=== PATIENT | female | born 1955 | race Caucasian/White ===

== ENCOUNTER → 2016-06-27 | Outpatient (REF) ==
[~2016-06-27] MED LIST: AMITRIPTYLINE H25 M1 PO; BYETTA 5MC300 MCG/SY SC; CYMBALTA 20MG20 MG PO; GLUMETZA500 MG PO; GRALISE600 MG PO; IBU600 MG PO; LASIX 40MG TABL40 MG PO; LEVOXYL0.088 MG PO; MELATONIN5 MG PO; PRINIVIL20 MG PO; PROTONIX 40MG T40 MG PO; VICOPROFEN 7.51 TAB PO; VITAMIN D8000 IU/ML PO
== END ==
LOC: ZLAB.WCH 15:13
DX: Z01.89 Encounter for other specified special examinations (principal)

== ENCOUNTER → 2016-09-29 | Outpatient (REF) | LOC: ZLAB.WCH 19:11 | DX: Z01.89 Encounter for other specified special examinations (principal) ==

== ENCOUNTER → 2017-06-29 | Outpatient (REF) | LOC: ZLAB.WCH 17:50 | DX: Z01.89 Encounter for other specified special examinations (principal) ==

== ENCOUNTER → 2017-09-13 | Outpatient (CLI) | payer MEDICARE, BC | LOC: COL.RAD 07:49 | DX: K31.89 Other diseases of stomach and duodenum (principal); R14.3 Flatulence; K57.92 Diverticulitis of intestine, part unspecified, without perforation or abscess without bleeding; R14.0 Abdominal distension (gaseous); R11.0 Nausea; R10.9 Unspecified abdominal pain; K58.9 Irritable bowel syndrome, unspecified; K21.9 Gastro-esophageal reflux disease without esophagitis | CPT/HCPCS: A9541 ==

== ENCOUNTER → 2017-09-19 | Outpatient (REF) ==
[2017-09-19 18:25] LABS: IRON,SERUM 28 ug/dL (35-150)
[2017-09-19 18:34] LABS: TOTAL IRON BINDING CAPACITY 388 ug/dL (265-497)
[2017-09-19 18:58] LABS: FERRITIN 122 ng/mL (11-264)
== END ==
LOC: ZLAB.WCH 18:04
PROVIDERS: Nurse Practitioner Family
DX: Z01.89 Encounter for other specified special examinations (principal)

== ENCOUNTER → 2017-12-26 | Outpatient (REF) | LOC: ZLAB.WCH 08:33 | DX: Z01.89 Encounter for other specified special examinations (principal) ==

== ENCOUNTER → 2018-04-08 | Outpatient (CLI) | payer MEDICARE, BC ==
[~2018-04-08] VITALS: Ht 165.1 cm; Wt 99.0 kg
[2018-04-08] VITALS (12 sets, daily range): BP systolic 122–152; BP diastolic 75–93; PULSE 76–93
[~2018-04-08] MED LIST changes: +ASMANEX TW0.22 MG/A1 IH; +SYNTHROID0.088 MG/T PO; +VICTOZA6 MG/ML SQ
[2018-04-08 09:15] LABS: PROTHROMBIN TIME 11.2 SECONDS (9.7-12.8)
--- NOTE | 2018-04-08 09:25 | NUR ---
PT TAKEN TO US ROOM. PLACED ON THE TABLE AND MONITORING EQUIPMENT PLACED. VSS.
--- NOTE | 2018-04-08 09:30 | NUR ---
PT DOING WELL. TIME OUT DONE. DR ORTIZ IN ROOM.
--- NOTE | 2018-04-08 09:35 | NUR ---
PROCEDURE COMPLETED. PT CLEANED AND BANDAIDE PLACED. VOICES SOME PAIN IN THE LEFT SHOULDER. DR ORTIZ REASSURED PT.
== END ==
LOC: COL.RAD 08:29
PROVIDERS: Radiology Diagnostic Radiology
DX: K76.0 Fatty (change of) liver, not elsewhere classified (principal); Z72.89 Other problems related to lifestyle

== ENCOUNTER → 2018-05-15 | Outpatient (CLI) | payer MEDICARE, BC | LOC: COL.RAD 09:36 | DX: K44.9 Diaphragmatic hernia without obstruction or gangrene (principal); K21.9 Gastro-esophageal reflux disease without esophagitis; K22.8 Other specified diseases of esophagus ==

== ENCOUNTER → 2018-06-27 | Outpatient (REF) | LOC: ZLAB.WCH 17:15 | DX: Z01.89 Encounter for other specified special examinations (principal) ==

== ENCOUNTER 2018-07-13 23:09 | Emergency (ER) | payer MEDICARE, BC ==
[~2018-07-13] VITALS: Ht 165.1 cm; Wt 99.5 kg
[2018-07-13 23:20] VITALS: TEMP 97.4
[2018-07-14] MEDS ORDERED: PREDNISONE10 MG PO (00:28)
[2018-07-14 01:11] VITALS: BP 144/81; PULSE 82
== END 2018-07-14 01:11 | disposition home or self-care (01) ==
LOC: COL.ER 23:09
DX: L50.9 Urticaria, unspecified (principal); E11.9 Type 2 diabetes mellitus without complications; I10 Essential (primary) hypertension; Z79.84 Long term (current) use of oral hypoglycemic drugs
CPT/HCPCS: J1200; J7512

== ENCOUNTER 2019-02-01 13:32 | Emergency (ER) | payer MEDICARE, BC ==
[~2019-02-01] VITALS: Ht 165.1 cm; Wt 98.6 kg
[~2019-02-01 13:32] MED LIST changes: +PREDNISONE10 MG PO
[2019-02-01 13:34] VITALS: TEMP 97.6
[2019-02-01] MEDS ORDERED: MOBIC 7.5MG7.5 MG PO (14:03)
[2019-02-01 14:11] LABS: BASO % 0.6 % (0.0-2.0); EOS # 0.1 (0.0-0.7); GRAN # 4.3 (1.4-6.5); GRAN % 65.7 % (42.2-75.2); HEMATOCRIT 39.4 % (37.0-47.0); HEMOGLOBIN 13.2 g/dl (12.5-16.0); LYMPH # 1.6 (1.2-3.4); LYMPH % 24.4 % (20.0-51.0); MEAN CELL VOLUME 104 fl (80.0-100.0); MEAN CORPUSCULAR HEMOGLOBIN 35 pg (27.0-31.0); MEAN CORPUSCULAR HGB CONC 34 g/dl (33.0-37.0); MEAN PLATELET VOLUME 10.8 fl (7.4-10.4); MONO # 0.5 (0.1-0.6); PLATELET COUNT 272 K/mm3 (130-400); RED BLOOD COUNT 3.78 M/mm3 (4.10-5.30); REDCELL DISTRIBUTION WIDTH-CV 12.1 % (11.5-14.5)
[2019-02-01 14:25] LABS: ALANINE AMINOTRANSFERASE 49 U/L (9-52); ALBUMIN 4.4 gm/dL (3.5-5.0); ALKALINE PHOSPHATASE 100 U/L (50-136); ANION GAP 11 mmol/L (7-16); AST,SGOT 51 U/L (15-37); BILIRUBIN,TOTAL 0.3 mg/dL (0.0-1.0); BLOOD UREA NITROGEN 19 mg/dL (7-17); CALCIUM 9.6 mg/dL (8.4-10.2); CARBON DIOXIDE 26 mmol/L (22-30); CHLORIDE 101 mmol/L (98-107); CREATININE, serum 0.84 (0.52-1.25); GLUCOSE 159 mg/dL (74-106); POTASSIUM 4.4 mmol/L (3.4-5.0); SODIUM 138 mmol/L (137-145); TOTAL PROTEIN 7.2 gm/dL (6.4-8.2)
[2019-02-01 14:36] LABS: TROPONIN-I < 0.012 ng/mL (0.000-0.035)
[2019-02-01 17:27] VITALS: BP 162/64; PULSE 70
== END 2019-02-01 17:27 | disposition home or self-care (01) ==
LOC: COL.ER 13:32
PROVIDERS: Emergency Medicine
DX: R07.89 Other chest pain (principal); E11.9 Type 2 diabetes mellitus without complications; Z79.84 Long term (current) use of oral hypoglycemic drugs
CPT/HCPCS: J1885; J7030

== ENCOUNTER → 2020-02-27 | Outpatient (REF) ==
[~2020-02-27] MED LIST changes: +MOBIC 7.5MG7.5 MG PO
== END ==
LOC: ZLAB.WCH 18:26
DX: Z01.89 Encounter for other specified special examinations (principal)

== ENCOUNTER → 2020-03-17 | Outpatient (REF) | LOC: ZLAB.WCH 19:13 | DX: Z01.89 Encounter for other specified special examinations (principal) ==

== ENCOUNTER 2020-05-09 11:34 | Emergency (ER) | payer MEDICARE, OTHER ==
[~2020-05-09] VITALS: Ht 165.1 cm; Wt 98.2 kg
[2020-05-09 11:58] VITALS: TEMP 98.8
[2020-05-09 15:02] VITALS: BP 130/82; PULSE 63
== END 2020-05-09 14:52 | disposition home or self-care (01) ==
LOC: COL.ER 11:34
DX: S82.65XA Nondisplaced fracture of lateral malleolus of left fibula, initial encounter for closed fracture (principal); E11.9 Type 2 diabetes mellitus without complications; E03.9 Hypothyroidism, unspecified; I10 Essential (primary) hypertension; K21.9 Gastro-esophageal reflux disease without esophagitis; Z88.6 Allergy status to analgesic agent; Z88.0 Allergy status to penicillin; Z87.891 Personal history of nicotine dependence; Z79.890 Hormone replacement therapy; Z79.84 Long term (current) use of oral hypoglycemic drugs; W17.89XA Other fall from one level to another, initial encounter; Y92.094 Garage of other non-institutional residence as the place of occurrence of the external cause

== ENCOUNTER 2020-10-12 15:47 | Emergency (ER) | payer MEDICARE, OTHER ==
[~2020-10-12] VITALS: Ht 165.1 cm; Wt 98.2 kg
[2020-10-12 16:02] VITALS: TEMP 98.2
[2020-10-12 17:45] VITALS: BP 148/90; PULSE 82
== END 2020-10-12 17:48 | disposition home or self-care (01) ==
LOC: COL.ER 15:47
DX: S79.912A Unspecified injury of left hip, initial encounter (principal); S49.92XA Unspecified injury of left shoulder and upper arm, initial encounter; R60.0 Localized edema; E11.43 Type 2 diabetes mellitus with diabetic autonomic (poly)neuropathy; E11.40 Type 2 diabetes mellitus with diabetic neuropathy, unspecified; K31.84 Gastroparesis; E03.9 Hypothyroidism, unspecified; I10 Essential (primary) hypertension; K21.9 Gastro-esophageal reflux disease without esophagitis; Z79.84 Long term (current) use of oral hypoglycemic drugs; Z79.890 Hormone replacement therapy; W01.0XXA Fall on same level from slipping, tripping and stumbling without subsequent striking against object, initial encounter; Y92.009 Unspecified place in unspecified non-institutional (private) residence as the place of occurrence of the external cause
CPT/HCPCS: J1650

== ENCOUNTER → 2020-10-14 | Outpatient (CLI) | payer MEDICARE, OTHER ==
[~2020-10-14] MED LIST changes: +CYMBALTA 60MG60 MG PO; +LOVENOX 4040 MG/0.4 SQ; +TYLENOL 500MG500 MG PO; +ULTRAM 50MG TAB50 MG PO; +ZANAFLEX CAPSULE6 MG PO; +ZYRTEC 10MG10 MG PO
== END ==
LOC: COL.VAS 08:10
DX: M79.89 Other specified soft tissue disorders (principal); M79.662 Pain in left lower leg

== ENCOUNTER 2020-11-01 19:30 | Inpatient (IN) | payer MEDICARE, OTHER ==
[~2020-11-01] VITALS: Ht 165.1 cm; Wt 100.5 kg
[~2020-11-01 19:30] MED LIST changes: -CYMBALTA 60MG60 MG PO; -LOVENOX 4040 MG/0.4 SQ; -TYLENOL 500MG500 MG PO; -ULTRAM 50MG TAB50 MG PO; -ZANAFLEX CAPSULE6 MG PO; -ZYRTEC 10MG10 MG PO
[2020-11-01 22:08] LABS: BASO % 0.5 % (0.0-2.0); EOS # 0.1 (0.0-0.7); EOS % 1.1 % (0-4.0); GRAN # 5.6 (1.4-6.5); GRAN % 69.6 % (42.2-75.2); HEMOGLOBIN 11.4 g/dl (12.5-16.0); LYMPH # 1.8 (1.2-3.4); LYMPH % 22.6 % (20.0-51.0); MEAN CELL VOLUME 105 fl (80.0-100.0); MEAN CORPUSCULAR HEMOGLOBIN 34 pg (27.0-31.0); MEAN CORPUSCULAR HGB CONC 33 g/dl (33.0-37.0); MEAN PLATELET VOLUME 11.8 fl (7.4-10.4); MONO # 0.5 (0.1-0.6); MONO % 5.8 % (1.7-9.3); PLATELET COUNT 278 K/mm3 (130-400); RED BLOOD COUNT 3.33 M/mm3 (4.10-5.30); REDCELL DISTRIBUTION WIDTH-CV 12.7 % (11.5-14.5)
[2020-11-01 22:14] LABS: ALBUMIN 4.5 gm/dL (3.5-5.0); BILIRUBIN,TOTAL 0.4 mg/dL (0.0-1.0); CALCIUM 9.5 mg/dL (8.4-10.2); CREATININE, serum 0.97 (0.52-1.25); POTASSIUM 4.6 mmol/L (3.4-5.0); TOTAL PROTEIN 7.5 gm/dL (6.4-8.2)
[2020-11-01] MEDS ORDERED: ZANAFLEX CAPSULE6 MG PO (23:59)
[2020-11-02 02:21] LABS: INR 1.1 (0.8-3.0); PROTHROMBIN TIME 11.8 SECONDS (9.7-12.8)
[2020-11-02 03:05] LABS: COLLECTION METHOD CLEAN CATCH
[2020-11-02 03:12] LABS: MUCOUS Present /lpf; PH 5 (5-8); SQUAMOUS EPITHELIAL 0-2 /hpf; URINE APPEARANCE Clear; URINE BACTERIA None Seen /hpf; URINE BILIRUBIN Negative (NEGATIVE); URINE BLOOD Negative (NEGATIVE); URINE COLOR Yellow; URINE GLUCOSE Negative (NEGATIVE); URINE KETONE 1+ (NEGATIVE); URINE LEUKOCYTE ESTERASE Negative (NEGATIVE); URINE NITRATE Negative (NEGATIVE); URINE PROTEIN(semi-quant) Negative (NEGATIVE); URINE RBC 0-2 /hpf; URINE UROBILINOGEN Negative (NEGATIVE)
[2020-11-02 04:35] VITALS: BP 160/91; PULSE 108; TEMP 98.1
[2020-11-02 07:12] VITALS: BP 146/77; PULSE 78; TEMP 98.3
[2020-11-02 09:19] LABS: BASO % 0.3 % (0.0-2.0); EOS # 0.1 (0.0-0.7); EOS % 0.8 % (0-4.0); GRAN % 75.3 % (42.2-75.2); HEMOGLOBIN 11.2 g/dl (12.5-16.0); LYMPH # 1.6 (1.2-3.4); LYMPH % 16.8 % (20.0-51.0); MEAN CELL VOLUME 105 fl (80.0-100.0); MEAN CORPUSCULAR HEMOGLOBIN 34 pg (27.0-31.0); MEAN CORPUSCULAR HGB CONC 33 g/dl (33.0-37.0); MEAN PLATELET VOLUME 11.5 fl (7.4-10.4); MONO # 0.6 (0.1-0.6); MONO % 6.4 % (1.7-9.3); PLATELET COUNT 250 K/mm3 (130-400); RED BLOOD COUNT 3.27 M/mm3 (4.10-5.30); REDCELL DISTRIBUTION WIDTH-CV 12.6 % (11.5-14.5)
[2020-11-02 09:21] LABS: HEMATOCRIT 34.4 % (37.0-47.0)
[2020-11-02 09:27] LABS: ALBUMIN 4.2 gm/dL (3.5-5.0); BILIRUBIN,TOTAL 0.5 mg/dL (0.0-1.0); CALCIUM 9.2 mg/dL (8.4-10.2); CREATININE, serum 0.79 (0.52-1.25); POTASSIUM 4.3 mmol/L (3.4-5.0); TOTAL PROTEIN 7.3 gm/dL (6.4-8.2)
[2020-11-02 12:00] VITALS: BP 131/84; PULSE 82; TEMP 98.5
[2020-11-02 16:00] VITALS: BP 140/77; PULSE 78; TEMP 98.3
[2020-11-02] MEDS ORDERED: ZYRTEC 10MG10 MG PO (18:35)
[2020-11-02 19:15] VITALS: BP 144/95; PULSE 74; TEMP 98.2
[2020-11-03] VITALS (15 sets, daily range): BP systolic 119–1127; BP diastolic 51–97; PULSE 70–79; TEMP 97.6–98.6
[2020-11-03 08:41] LABS: CALCIUM 9.1 mg/dL (8.4-10.2); CREATININE, serum 0.88 (0.52-1.25); POTASSIUM 4.1 mmol/L (3.4-5.0)
[2020-11-03 08:58] LABS: BASO % 0.6 % (0.0-2.0); EOS # 0.1 (0.0-0.7); EOS % 1.7 % (0-4.0); GRAN # 4.5 (1.4-6.5); GRAN % 69.1 % (42.2-75.2); HEMOGLOBIN 10.7 g/dl (12.5-16.0); LYMPH # 1.4 (1.2-3.4); LYMPH % 21.1 % (20.0-51.0); MEAN CELL VOLUME 105 fl (80.0-100.0); MEAN CORPUSCULAR HEMOGLOBIN 34 pg (27.0-31.0); MEAN CORPUSCULAR HGB CONC 33 g/dl (33.0-37.0); MEAN PLATELET VOLUME 11.7 fl (7.4-10.4); MONO # 0.5 (0.1-0.6); MONO % 7.2 % (1.7-9.3); PLATELET COUNT 222 K/mm3 (130-400); RED BLOOD COUNT 3.11 M/mm3 (4.10-5.30); REDCELL DISTRIBUTION WIDTH-CV 12.8 % (11.5-14.5)
[2020-11-03 09:08] LABS: HEMATOCRIT 32.6 % (37.0-47.0)
[2020-11-04 03:17] VITALS: BP 116/66; PULSE 70; TEMP 97.7
[2020-11-04 08:13] VITALS: BP 156/71; PULSE 76; TEMP 98.3
[2020-11-04] MEDS ORDERED: ULTRAM 50MG TAB50 MG PO (10:19)
[2020-11-04] MEDS ORDERED: LOVENOX 4040 MG/0.4 SQ (10:19)
[2020-11-04] MEDS ORDERED: TYLENOL 500MG500 MG PO (10:20)
[2020-11-04 11:37] VITALS: BP 137/68; PULSE 75; TEMP 97.9
[2020-11-04 15:41] VITALS: BP 155/76; PULSE 89; TEMP 99.3
== END 2020-11-04 17:50 | DRG 494 ==
LOC: COL.ER 19:30 → OB 23:56 → SURG 23:56
PROVIDERS: Orthopaedic Surgery; Personal Emergency Response Attendant; Physician Assistant; Student in an Organized Health Care Education/Training Program; ADMIT Student in an Organized Health Care Education/Training Program
PROC: 0QSH04Z Reposition Left Tibia with Internal Fixation Device, Open Approach (ICD-10-PCS; principal; 2020-11-03 16:30)
DX: S82.252A Displaced comminuted fracture of shaft of left tibia, initial encounter for closed fracture (principal); S93.402A Sprain of unspecified ligament of left ankle, initial encounter; E11.43 Type 2 diabetes mellitus with diabetic autonomic (poly)neuropathy; E11.42 Type 2 diabetes mellitus with diabetic polyneuropathy; K31.84 Gastroparesis; E03.9 Hypothyroidism, unspecified; I10 Essential (primary) hypertension; K21.9 Gastro-esophageal reflux disease without esophagitis; Z20.822 Contact with and (suspected) exposure to COVID-19; T40.2X5A Adverse effect of other opioids, initial encounter; L29.9 Pruritus, unspecified; F32.9 Major depressive disorder, single episode, unspecified; F41.9 Anxiety disorder, unspecified; E66.9 Obesity, unspecified; Z68.36 Body mass index [BMI] 36.0-36.9, adult; Z79.84 Long term (current) use of oral hypoglycemic drugs; Z90.710 Acquired absence of both cervix and uterus; Z88.0 Allergy status to penicillin; Z88.5 Allergy status to narcotic agent; Z91.81 History of falling; W01.0XXA Fall on same level from slipping, tripping and stumbling without subsequent striking against object, initial encounter
CPT/HCPCS: 99223-AI; 99232-AI; 99233-AI; 99239; A4314; A9284; C1713; J1650; J1885; J2250; J2370; J2405; J2704; J3010; J7030; J7050; J7120; L1830; L1832

== ENCOUNTER 2020-11-04 14:51 | Inpatient (IN) | payer MEDICARE, OTHER ==
[~2020-11-04] VITALS: Ht 165.1 cm; Wt 105.2 kg
[~2020-11-04 14:51] MED LIST changes: +LOVENOX 4040 MG/0.4 SQ; +TYLENOL 500MG500 MG PO; +ULTRAM 50MG TAB50 MG PO; +ZANAFLEX CAPSULE6 MG PO; +ZYRTEC 10MG10 MG PO
--- NOTE | 2020-11-04 19:37 | NUR ---
Patient is a transfer from Surgical at the start of the shift. She is sitting comfortably in the cahir waiting for her dinner to comes up. She denies pain, she have knee immobilizer in placed in he left knee with ice compress. otherwise she dont have any complain. Call light is provided and within reach.
[2020-11-04 20:50] VITALS: TEMP 99.5
[2020-11-05 03:31] VITALS: BP 152/95; PULSE 105; TEMP 97.9
--- NOTE | 2020-11-05 05:08 | NUR ---
Patient get up 3x last night to use the bathroom. She is FWB assisst 1 with walker. But last night she get out of balance when RN assissted her and she agreed to use the bedside commode. at the beginning of the shift she got Tylenol she said that she was febrile before she get transferred from Surgery to [facility]. RN checked her temp it was 99.5 it went down to 97.9 for follow up checked. Otherwise she had a descent night.
--- NOTE | 2020-11-05 06:46 | NUR ---
Report received by JASPER Ritchie. Patient is sleeping in bed. Call light and bedside table are within reach. Will continue to monitor patient throughout shift.
[2020-11-05 09:19] VITALS: BP 152/95; PULSE 105; TEMP 97.9
--- NOTE | 2020-11-05 10:08 | NUR ---
Welcomed pt to the Rehab unit. Explained the rehab process & goals. Completed SW assessment w/ pt. She is alert & oriented & able to communicate her needs & wants to others. She lives at home w/ her in a 1 story home. There are no steps to enter. The bathroom has a walk-in shower w/ curtain, built-in seat, & hand held shower head. The toilet is standard height. Pt reports walking w/ a 4/w/walker or cane & was independent w/ her self care. She also reports doing the cooking, laundry, medication management, & finance management. She has her own 4/w/walker & cane. Pharmacy: Use [facility] for immediate prescription needs but established meds she uses [facility] & reports she has no concerns or issues w/ affording her medications. PCP: Dr. Alonzo DPOA: does not have any one designated & was given paperwork when on surgical. Pt had no questions/concerns at this time about her rehab stay. SW will continue to follow to provide support & assist w/ d/c planning.
--- NOTE | 2020-11-05 10:18 | NUR ---
Patient is A & x 4. Patient is resting in bed and c/o left shoulder pain since she has been using the walker and requests muscle relaxant. Call light and bedside table are within reach.
--- NOTE | 2020-11-05 14:36 | NUR ---
Patient has completed all therapies for the day. Patient states pain is 7/10 and is hurting in butt, back and left leg. Patient is A & O x4 and is resting comfortably in bed. Call light and bedside table are within reach.
[2020-11-05 18:13] VITALS: BP 140/70; PULSE 82; TEMP 99.2
--- NOTE | 2020-11-05 20:20 | NUR ---
Assessment completed, alert and oriented. Patient is comfortable sitting in reclining chair watching TV and requested to get back in bed for she said she is tired and its been a long day for her. Today was her 1st day working with PT and OT and she asked for Tylenol and she have cyclobenzaprine that is scheduled and she said she is ready to sleep. patient get up i assisst with walker and she have knee immobilizer in placed. Otherwise no further complains bedside table and call light is within reach. Bed alarm is all set.Will continue to follow.
[2020-11-06 05:14] VITALS: BP 171/82; PULSE 102; TEMP 97.4
[2020-11-06 07:41] VITALS: BP 152/74; PULSE 81
--- NOTE | 2020-11-06 07:57 | NUR ---
Patient resting in bed, call light in reach and alarm set. Will continue to monitor.
--- NOTE | 2020-11-06 15:23 | NUR ---
Patient attended all therapies this shift. She is independent with her oral cares. Tolerating diet well this shift. Her stopped by this afternoon to visit.
[2020-11-06 16:25] VITALS: BP 135/71; PULSE 79; TEMP 98.5
--- NOTE | 2020-11-06 19:03 | NUR ---
Changed dressing to patients left knee incision. Old dressing had dry bloody drainage that was observed. New dressing was applied to area: xeroform, 4x4's, ABD Pads, kerlix gauze, Jae wrap and secured leg with immobilizer. Patient tolerated well. Patient currently resting in bed, call light in reach and bed alarm set. Will continue to monitor.
--- NOTE | 2020-11-06 20:45 | NUR ---
Patient is resting in bed watching TV, alert and oriented. Denies pain in her surgical sites. She have knee immobilizer in placed and cold compress on top. 2100 meds are given and no furtehr complains. Bedside table and call light is within reach, be alarm is on. Will continue to follow for the nights.
[2020-11-07 03:57] VITALS: BP 156/87; PULSE 106; TEMP 97.9
--- NOTE | 2020-11-07 05:54 | NUR ---
Patient didn't sleep the whole night. She said she feels like the medication that she took last night. The Ultram is she pertaining. But she had it the other night and she got sleep. She went to the bathroom 3x all night and she peed good.
--- NOTE | 2020-11-07 08:22 | NUR ---
Patient resting in bed, call light in reach and bed alarm set. Reports pain to his left knee and given prn Tylenol. Denies any questions at this time.
--- NOTE | 2020-11-07 15:45 | NUR ---
Patient has been a Mod assist with walking to the bathroom using the walker. She is NWB to her left lower extremity. Her left knee incision is CDI, with a dressing of xeroform, gauze, ABD pad, Kerlix wrap and Jae wrap that was changed yesterday per orders. Her immobilizer is set at 0 degrees. See Additional nursing order for tomorrow to have nurse follow up with Ortho regarding therapy orders and movement of the right knee. Patient has concerns about how much she should be doing in regard to movement of the extremity without causing any harm to the knee. Patient has been taking PRN Tylenol with good effect. Will continue to monitor.
[2020-11-07 16:34] VITALS: BP 154/88; PULSE 83; TEMP 97.7
--- NOTE | 2020-11-07 18:50 | NUR ---
RECEIVED CHANGE OF SHIFT REPORT FROM DAY SHIFT NURSE. BED ALARM ON WHEN IN BED WITH CALL LIGHT WITHIN REACH.
--- NOTE | 2020-11-07 23:26 | NUR ---
PATIENT WITH DECREASED ROM/STRENGTH TO LLE DUE BRACE/RECENT SURGERY. DENIES NUMBNESS/TINGLING TO EXTREMITIES. DENIES CHEST PAIN/SOA AT THIS TIME. BED ALARM ON WITH CALL LIGHT WITHIN REACH. SEE MAR FOR PAIN MEDS GIVEN FOR COMFORT MAINTENANCE.
[2020-11-08 04:41] VITALS: BP 151/86; PULSE 59; TEMP 97.6
--- NOTE | 2020-11-08 06:30 | NUR ---
Report received from JASPER Tyson. Patient is sleeping in bed. Call light and bedside table are within reach. Will continue to monitor patient throughout shift.
[2020-11-08 06:50] LABS: BASO % 0.6 % (0.0-2.0); EOS # 0.2 (0.0-0.7); EOS % 4.5 % (0-4.0); GRAN % 62.5 % (42.2-75.2); HEMOGLOBIN 10.2 g/dl (12.5-16.0); LYMPH # 1.1 (1.2-3.4); LYMPH % 22.6 % (20.0-51.0); MEAN CELL VOLUME 106 fl (80.0-100.0); MEAN CORPUSCULAR HEMOGLOBIN 33 pg (27.0-31.0); MEAN CORPUSCULAR HGB CONC 32 g/dl (33.0-37.0); MEAN PLATELET VOLUME 10.6 fl (7.4-10.4); MONO # 0.4 (0.1-0.6); MONO % 8.8 % (1.7-9.3); PLATELET COUNT 287 K/mm3 (130-400); RED BLOOD COUNT 3.05 M/mm3 (4.10-5.30); REDCELL DISTRIBUTION WIDTH-CV 12.7 % (11.5-14.5)
[2020-11-08 06:53] LABS: HEMATOCRIT 32.4 % (37.0-47.0)
--- NOTE | 2020-11-08 07:07 | NUR ---
CHANGE OF SHIFT REPORT GIVEN TO DAY SHIFT NURSE, RUFINO HUTCHINSON.
[2020-11-08 07:18] LABS: CALCIUM 9.8 mg/dL (8.4-10.2); CREATININE, serum 0.88 (0.52-1.25); MAGNESIUM 1.8 mg/dL (1.6-2.3); POTASSIUM 4.1 mmol/L (3.4-5.0)
[2020-11-08 18:00] VITALS: BP 144/79; PULSE 97; TEMP 97.8
--- NOTE | 2020-11-08 18:30 | NUR ---
Patient finished all therapies for the day and is in bed. Patient states pain is 3/10. Call light and bedside table are within reach.
--- NOTE | 2020-11-08 19:00 | NUR ---
RECEIVED CHANGE OF SHIFT REPORT FROM DAY SHIFT NURSE. RESTING IN BED WITH EXIT ALARM ON AND CALL LIGHT WITHIN REACH.
--- NOTE | 2020-11-09 01:00 | NUR ---
PATIENT SLEEPS, DOES NOT WAKE WHEN STAFF ENTER ROOM ON ROUNDS. OBSERVED BREATHING NONLABORED AND EVEN. BED ALARM ON WITH CALL LIGHT WITHIN REACH. PATIENT UP WITH SBA USING WALKING, NEEDING MIN TO MOD ASSIST REPOSITIONING FROM LYING TO SIT AND SIT TO LYING IN BED AND GETTING LLE IN AND OUT OF BED DUE TO BRACE. DENIES CHEST PAIN/SOA. DENIES NUMBNESS/TINGLING TO EXTREMITIES SO FAR THIS SHIFT.
[2020-11-09 04:22] VITALS: BP 159/83; PULSE 69; TEMP 97.9
--- NOTE | 2020-11-09 06:30 | NUR ---
Report received from JASPER Tyson. Patient is in bed sleeping. Call light and bedside table are within reach. Will continue to monitor patient throughout shift.
--- NOTE | 2020-11-09 06:58 | NUR ---
CHANGE OF SHIFT REPORT GIVEN TO DAY SHIFT NURSE, RUFINO HUTCHINSON.
[2020-11-09 07:55] VITALS: BP 116/70; PULSE 92; TEMP 98
--- NOTE | 2020-11-09 14:23 | NUR ---
Patient has completed all therapies for the day and is resting in recliner. Patient denies pain at this time. Bedside table and call light are within reach.
--- NOTE | 2020-11-09 14:26 | NUR ---
Visited w/ pt & . Pt stated she is doing better as she had gotten off to a slow start this morning. Reviewed w/ them about the team conference tomorrow & explained about a pt/family meeting. They were both fine w/ this & stated 1:30 would work for him. Also informed them of tentative d/c for 11/12/20 w/ recommendation for home health. They both seemed to be fine w/ this. SW will continue to provide support & assist w/ d/c planning.
--- NOTE | 2020-11-09 15:04 | NUR ---
Admission QIM scores were reviewed by the team. Code of 4 chosen for toilet hygiene was determined by team discussion to be the most usual performance for this patient during the assessment period. Code of 4 chosen for toileting transfers was determined by team discussion to be the most usual performance for this patient during the assessment period. Code of 5 chosen for upper body dressing was determined by team discussion to be the most usual performance for this patient during the assessment period. Code of 2 chosen for lower body dressing was determined by team discussion to be the most usual performance for this patient during the assessment period.--Christie Sheets, PD
[2020-11-09 17:40] VITALS: BP 130/55; PULSE 50; TEMP 98.6
--- NOTE | 2020-11-09 19:40 | NUR ---
RECEIVED CHANGE OF SHIFT REPORT FROM DAY SHIFT NURSE. BED ALARM ON WITH CALL LIGHT WITHIN REACH.
--- NOTE | 2020-11-10 01:00 | NUR ---
C/O PINCHING FEELING TO LEFT SIDE BELOW AXILLA AREA WHEN UP USING WALKER. DENIES CHEST PAIN/SOA AT TIME OF DISCOMFRT TO LEFT SIDE.
--- NOTE | 2020-11-10 02:08 | NUR ---
REQUESTED/GIVEN TYLENOL FOR PAIN, SEE MAR. BED ALARM ON WITH CALL LIGHT WITHIN REACH. BRACE TO LLE IN PLACE AND ELEVATED ON PILLOWS, PLACED ICE PACK TO L KNEE AREA PER PATIENT REQUEST, PATIENT HAD ICE OFF EARLIER "WANT TO TAKE A BREAK FROM THE ICE".
[2020-11-10 04:48] VITALS: BP 135/59; PULSE 63; TEMP 98.1
--- NOTE | 2020-11-10 05:09 | NUR ---
CONTINUED TO COMPLAIN OF LEFT SIDE PINCHING DISCOMFORT WITH MOVEMENT/USING WALKER. DENIES CHEST PAIN/SOA WITH C/O OF LEFT SIDE DISCOMFORT. PATIENT AGREED TO TAKE TRAMADOL FOR PAIN, SEE MAR FOR TIME GIVEN.
--- NOTE | 2020-11-10 07:22 | NUR ---
CHANGE OF SHIFT REPORT GIVEN TO DAY SHIFT NURSEWILBER RN.
[2020-11-10 08:05] VITALS: BP 123/79; PULSE 79; TEMP 97.6
--- NOTE | 2020-11-10 13:30 | NUR ---
Conducted family meeting w/ pt & . Also present was the PT, OT, & SW/web development director. The team talked about how pt has been doing & any concerns. Informed them of d/c for 11/12/20, w/ recommendation for home health PT/OT. They were fine w/ the plan & had no questions or concerns at this time. Pt & did express their appreciation for the staff & everything they have done for her.
--- NOTE | 2020-11-10 15:22 | NUR ---
Provided pt w/ home health list. She asked some questions which SW answered for her. Told her that SW would speak w/ her tomorrow to see if she had decided on one.
--- NOTE | 2020-11-10 23:06 | NUR ---
ALERT 0X4. RATING PAIN TO LEFT LEG 5/10. TRAMADOL GIVEN ALONG W PM MEDS. DENIES SOA,CHEST PAIN OR DIZZY. DID HAVE SOME VERTIGO PT STATES DURING PT TODAY. POC CARE DISCUSSED. CALL LIGHT WI REACH. DSG TO LEFT LEG, MOBILIZER AND ICED. NEEDS MET.
[2020-11-11 04:36] VITALS: BP 151/64; PULSE 65; TEMP 97.6
--- NOTE | 2020-11-11 05:37 | NUR ---
PT SLEPT THROUGH THE NIGHT WITHOUT INCIDENT. NEEDS MET.
--- NOTE | 2020-11-11 06:30 | NUR ---
Report received from JASPER Carter. Patient is in bed sleep. Call light and bedside table are within reach. Will continue to monitor patient throughout shift.
--- NOTE | 2020-11-11 10:10 | NUR ---
Visited w/ pt about her d/c tomorrow, 11/12/20. She states she feels ready. [email or web address] Reviewed the Medicare Rights form & pt signed. She did not have any other questions or concerns at this time.
[2020-11-11 18:19] VITALS: BP 153/79; PULSE 81; TEMP 98
--- NOTE | 2020-11-11 20:00 | NUR ---
PT RESTING IN BED. C/O LOOSE STOOLS D/T HX OF STEIN. HAVING MUSCLE SPASMS IN BACK (HX LAMINECTOMY) AND LLE. IMMOBILIZER TO LT KNEE IN PLACE. REPORT FROM RUFINO RELATED NOT TO TOUCH OR UNDO IMMOBILIZED. NEW ICE PACK APPLIED. FLEXARIL HELPS WITH THIS DISCOMFORT. SEE MAR. CALL LIGHT IN REACH. BED ALARM SET.
[2020-11-12 05:34] VITALS: BP 158/77; PULSE 64; TEMP 97.9
--- NOTE | 2020-11-12 06:25 | NUR ---
PT RESTING SOUNDLY AT THIS TIME.
--- NOTE | 2020-11-12 06:51 | NUR ---
Report received from JASPER Morrow. Patient is sleeping in bed. Call light and bedside table are within reach.
[2020-11-12] MEDS ORDERED: TYLENOL 500MG500 MG PO (08:57)
[2020-11-12] MEDS ORDERED: CYMBALTA 60MG60 MG PO (08:57)
[2020-11-12] MEDS ORDERED: ULTRAM 50MG TAB50 MG PO (08:58)
--- NOTE | 2020-11-12 12:00 | NUR ---
Patient health summary, discharge summary, and home meds printed and reviewed with patient. Stressed importance of follow up appointments. Reviewed medications. Patient instructed to spanish moss picker medication at pharmacy of choice. Belongings gathered by AZEB Grayson including all personal valuables. Patient transported via by AZEB Grayson and seatbelted for ride home. Pt denied questions.
--- NOTE | 2020-11-16 14:54 | NUR ---
Discharge QIM scores were reviewed by the team. Code of 4 chosen for toilet hygiene was determined by team discussion to be the most usual performance for this patient during the assessment period. Code of 5 chosen for shower/bathe self was determined by team discussion to be the most usual performance for this patient during the assessment period. Code of 6 chosen for sit to lying was determined by team discussion to be the most usual performance for this patient during the assessment period. Code of 4 chosen for lying to sitting on side of bed was determined by team discussion to be the most usual performance for this patient during the assessment period. Code of 4 for sit to stand was determined by team discussion to be the most usual performance for this patient during the assessment period. Code of 4 for chair/bed to chair transfers was determined by team discussion to be the most usual performance for this patient during the assessment period.--Christie Sheets, PD
== END 2020-11-12 12:00 | disposition home health service (06) | DRG 561 ==
PROVIDERS: ADMIT Internal Medicine
DX: S82.145D Nondisplaced bicondylar fracture of left tibia, subsequent encounter for closed fracture with routine healing (principal); E11.42 Type 2 diabetes mellitus with diabetic polyneuropathy; E11.43 Type 2 diabetes mellitus with diabetic autonomic (poly)neuropathy; S93.402D Sprain of unspecified ligament of left ankle, subsequent encounter; K31.84 Gastroparesis; I10 Essential (primary) hypertension; E03.9 Hypothyroidism, unspecified; K21.9 Gastro-esophageal reflux disease without esophagitis; F32.9 Major depressive disorder, single episode, unspecified; E66.9 Obesity, unspecified; G47.00 Insomnia, unspecified; Z68.36 Body mass index [BMI] 36.0-36.9, adult; W18.30XD Fall on same level, unspecified, subsequent encounter; Z79.84 Long term (current) use of oral hypoglycemic drugs; Z79.891 Long term (current) use of opiate analgesic; Z90.710 Acquired absence of both cervix and uterus; Z88.5 Allergy status to narcotic agent; Z88.0 Allergy status to penicillin; Z87.891 Personal history of nicotine dependence; Z91.81 History of falling
CPT/HCPCS: 99222-AI; 99232-AI; J1650; J1815

== ENCOUNTER → 2022-12-21 | Outpatient (CLI) | payer MEDICARE, OTHER ==
[~2022-12-21] MED LIST changes: +CYMBALTA 60MG60 MG PO
== END ==
LOC: COL.RAD 13:36
DX: M41.86 Other forms of scoliosis, lumbar region (principal); M46.1 Sacroiliitis, not elsewhere classified; Z98.1 Arthrodesis status

== ENCOUNTER 2023-07-23 11:37 | Emergency (ER) | payer MEDICARE, OTHER ==
[~2023-07-23] VITALS: Ht 165.1 cm; Wt 95.5 kg
[2023-07-23 11:48] VITALS: TEMP 98.5
[2023-07-23 13:35] VITALS: BP 145/75; PULSE 89
== END 2023-07-23 13:37 | disposition home or self-care (01) ==
LOC: COL.ER 11:37
DX: S90.02XA Contusion of left ankle, initial encounter (principal); Z87.891 Personal history of nicotine dependence; W01.198A Fall on same level from slipping, tripping and stumbling with subsequent striking against other object, initial encounter; Y92.000 Kitchen of unspecified non-institutional (private) residence as the place of occurrence of the external cause